=== PATIENT | female | born 1985 | race Hispanic/Latino ===

== ENCOUNTER 2022-07-13 19:26 | Emergency (ER) | payer OTHER ==
[~2022-07-13] VITALS: Ht 160 cm; Wt 81.6 kg
[2022-07-13] MEDS ORDERED: LABETALOL HCL 5 MG/ML 20ML VIAL IV STA (19:57)
[2022-07-13] MEDS ORDERED: LABETALOL HCL 20 ML ONE (20:13)
[2022-07-13] MEDS ORDERED: ATENOLOL50 MG PO (20:51)
[2022-07-13 20:56] VITALS: BP 149/92
== END 2022-07-13 20:56 | disposition home or self-care (01) ==
LOC: FSED 19:37
DX: R07.89 Other chest pain (principal); I16.0 Hypertensive urgency; R00.0 Tachycardia, unspecified; R94.31 Abnormal electrocardiogram [ECG] [EKG]
CPT/HCPCS: 71046; 80053; 81003; 81025; 82553; 84484; 85025; 93005; 96374; 99284